=== PATIENT | female | born 1945 | race Caucasian/White ===

== ENCOUNTER → 2018-01-15 | Outpatient (CLI) | payer MEDICARE, BC ==
[2018-01-15 11:45] LABS: BASO # 0.1 (0.02-0.10); EOS # 0.1 (0.04-0.40); EOS % 2.6 % (1.0-5.0); HEMATOCRIT 44.6 % (37.0-47.0); HEMOGLOBIN 14.3 g/dL (12.5-16.0); LYMPH# 0.9 (1.50-4.00); MEAN CELL VOLUME 93 fl (78-100); MEAN CORPUSCULAR HEMOGLOBIN 30 pg (27-31); MEAN CORPUSCULAR HGB CONC 32 g/dL (33-37); MEAN PLATELET VOLUME 11.8 fl (7.4-10.4); MONO # 0.4 (0.20-0.80); NEU # 2.7 (1.40-6.50); PLATELET COUNT 298 K/mm3 (130-400); RED BLOOD COUNT 4.82 M/mm3 (4.10-5.30); RED CELL DISTRIBUTION WIDTH 13.7 % (11.5-14.5); WHITE BLOOD COUNT 4.2 K/mm3 (4.8-10.8)
[2018-01-15 11:51] LABS: ALBUMIN 4.5 g/dL (3.5-5.0); CALCIUM 9.5 mg/dL (8.4-10.2); POTASSIUM 4.3 mmol/L (3.6-5.0); TOTAL BILIRUBIN 0.7 mg/dL (0.2-1.3); TOTAL PROTEIN 7.5 g/dL (6.3-8.2)
== END ==
LOC: LAB 10:06
PROVIDERS: Nurse Practitioner Family
DX: R07.9 Chest pain, unspecified (principal)

== ENCOUNTER → 2018-06-01 | Outpatient (CLI) | payer MEDICARE | LOC: RAD | DX: Z13.820 Encounter for screening for osteoporosis (principal); M81.0 Age-related osteoporosis without current pathological fracture ==

== ENCOUNTER → 2018-06-01 | Outpatient (CLI) | payer MEDICARE, OTHER | LOC: MAMMO 11:30 | DX: Z12.31 Encounter for screening mammogram for malignant neoplasm of breast (principal) ==

== ENCOUNTER → 2019-04-22 | Outpatient (CLI) | payer MEDICARE | LOC: AMSURD 12:39 → LAB 12:39 | DX: R07.9 Chest pain, unspecified (principal) ==

== ENCOUNTER 2019-07-03 12:55 | Emergency (ER) | payer MEDICARE ==
[2019-07-03] MEDS ORDERED: FOSAMAX 70MG TA70 MG PO (13:09)
[2019-07-03 13:37] LABS: EOS # 0.1 (0.04-0.40); EOS % 1.1 % (1.0-5.0); HEMATOCRIT 42.7 % (37.0-47.0); LYMPH# 0.6 (1.50-4.00); MEAN CELL VOLUME 89 fl (78-100); MEAN CORPUSCULAR HEMOGLOBIN 29 pg (27-31); MEAN CORPUSCULAR HGB CONC 33 g/dL (33-37); MEAN PLATELET VOLUME 10.7 fl (7.4-10.4); MONO # 0.4 (0.20-0.80); NEU # 3.6 (1.40-6.50); PLATELET COUNT 263 K/mm3 (130-400); RED BLOOD COUNT 4.82 M/mm3 (4.10-5.30); WHITE BLOOD COUNT 4.7 K/mm3 (4.8-10.8)
[2019-07-03 13:47] LABS: ALBUMIN 4.3 g/dL (3.4-4.8); POTASSIUM 4.3 mmol/L (3.5-5.1)
[2019-07-03 13:49] LABS: CALCIUM 9.1 mg/dL (8.3-10.5)
[2019-07-03 13:50] LABS: TOTAL PROTEIN 7.3 g/dL (6.2-8.1)
[2019-07-03 13:52] LABS: TOTAL BILIRUBIN 0.4 mg/dL (0.2-1.2)
[2019-07-03 15:29] VITALS: BP 120/64
== END 2019-07-03 15:34 | disposition home or self-care (01) ==
LOC: ED 12:55
PROVIDERS: Family Medicine
DX: R07.89 Other chest pain (principal); J44.9 Chronic obstructive pulmonary disease, unspecified

== ENCOUNTER → 2020-07-25 | Outpatient (CLI) | payer MEDICARE ==
[~2020-07-25] MED LIST: FOSAMAX 70MG TA70 MG PO
== END ==
LOC: RAD 12:35 → MAMMO 13:45
DX: Z13.820 Encounter for screening for osteoporosis (principal); M81.0 Age-related osteoporosis without current pathological fracture

== ENCOUNTER 2021-04-23 08:42 | Emergency (ER) | payer MEDICARE ==
[~2021-04-23] VITALS: Ht 167.6 cm; Wt 65.5 kg
[2021-04-23 10:04] LABS: BASO # 0.04 K/mm3 (0.02-0.10); EOS # 0.11 K/mm3 (0.04-0.40); HEMATOCRIT 39.2 % (37.0-47.0); HEMOGLOBIN 12.6 g/dL (12.5-16.0); LYMPH# 0.63 K/mm3 (1.50-4.00); MEAN CELL VOLUME 89 fl (78-100); MEAN CORPUSCULAR HEMOGLOBIN 28 pg (27-31); MEAN CORPUSCULAR HGB CONC 32 g/dL (33-37); MEAN PLATELET VOLUME 11.2 fl (7.4-10.4); MONO # 0.38 K/mm3 (0.20-0.80); NEU # 2.46 K/mm3 (1.40-6.50); PLATELET COUNT 222 K/mm3 (130-400); RED BLOOD COUNT 4.43 M/mm3 (4.10-5.30); WHITE BLOOD COUNT 3.6 K/mm3 (4.8-10.8)
[2021-04-23 10:07] LABS: ALBUMIN 3.8 g/dL (3.4-4.8); POTASSIUM 3.8 mmol/L (3.5-5.1); SODIUM 142 mmol/L (136-145)
[2021-04-23 10:08] LABS: CALCIUM 9.3 mg/dL (8.3-10.5)
[2021-04-23 10:09] LABS: GLUCOSE 100 mg/dL (65-105); TOTAL PROTEIN 6.5 g/dL (6.2-8.1)
[2021-04-23 10:10] LABS: CARBON DIOXIDE 24 mmol/L (23-31)
[2021-04-23 10:11] LABS: TOTAL BILIRUBIN 0.5 mg/dL (0.2-1.2)
[2021-04-23 10:15] LABS: AST-SGOT 15 U/L (5-34)
[2021-04-23 10:16] LABS: ALT/SGPT 12 U/L (0-55); MAGNESIUM 1.91 mg/dL (1.60-2.60)
[2021-04-23 10:30] LABS: TROPONIN-I < 0.030 ng/mL (<0.030)
[2021-04-23] MEDS ORDERED: CALCIUM CITRAT1 EAC9 PO (10:39)
[2021-04-23] MEDS ORDERED: FOSAMAX 70MG TA70 MG PO (10:39)
[2021-04-23] MEDS ORDERED: VITAMIN D325 MC8 PO (10:39)
[2021-04-23] MEDS ORDERED: MULTIPLE VITAMI1 TA1 PO (10:40)
[2021-04-23] MEDS ORDERED: ARICEPT5 M1 PO (10:40)
[2021-04-23] MEDS ORDERED: PRAVASTATIN SOD10 MG PO (10:40)
[2021-04-23 11:51] VITALS: BP 165/90
[2021-04-23 11:57] LABS: URINE APPEARANCE CLEAR; URINE COLOR YELLOW
[2021-04-23 11:58] LABS: URINE BILIRUBIN NEGATIVE (NEGATIVE); URINE BLOOD TRACE (NEGATIVE); URINE GLUCOSE NEGATIVE (NEGATIVE); URINE KETONE NEGATIVE (NEGATIVE); URINE LEUKOCYTE ESTERASE TRACE (NEGATIVE); URINE NITRATE NEGATIVE (NEGATIVE); URINE PROTEIN(semi-quant) TRACE (NEGATIVE); URINE UROBILINOGEN NORMAL (NORMAL); URINE WBC 0-1 /hpf (0-3)
[2021-04-23 12:00] LABS: URINE MUCUS PRESENT (NOT PRESENT)
[2021-04-23] MEDS ORDERED: NORCO 325 MG-51 TA1 PO ×2 (12:01)
== END 2021-04-23 11:51 | disposition home or self-care (01) ==
LOC: ED 08:42
PROVIDERS: Physician Assistant
DX: F03.90 Unspecified dementia, unspecified severity, without behavioral disturbance, psychotic disturbance, mood disturbance, and anxiety (principal); R07.89 Other chest pain; Z87.891 Personal history of nicotine dependence
CPT/HCPCS: Q9967

== ENCOUNTER 2021-04-26 08:26 | Emergency (ER) | payer MEDICARE ==
[~2021-04-26] VITALS: Ht 167.6 cm; Wt 65.5 kg
[~2021-04-26 08:26] MED LIST changes: +ARICEPT5 M1 PO; +CALCIUM CITRAT1 EAC9 PO; +MULTIPLE VITAMI1 TA1 PO; +NORCO 325 MG-51 TA1 PO; +PRAVASTATIN SOD10 MG PO; +VITAMIN D325 MC8 PO
[2021-04-26 09:52] LABS: BASO # 0.03 K/mm3 (0.02-0.10); EOS # 0.13 K/mm3 (0.04-0.40); EOS % 3.6 % (1.0-5.0); HEMATOCRIT 40.9 % (37.0-47.0); HEMOGLOBIN 12.9 g/dL (12.5-16.0); LYMPH# 0.74 K/mm3 (1.50-4.00); MEAN CELL VOLUME 89 fl (78-100); MEAN CORPUSCULAR HEMOGLOBIN 28 pg (27-31); MEAN CORPUSCULAR HGB CONC 32 g/dL (33-37); MEAN PLATELET VOLUME 11.6 fl (7.4-10.4); MONO # 0.36 K/mm3 (0.20-0.80); NEU # 2.37 K/mm3 (1.40-6.50); PLATELET COUNT 229 K/mm3 (130-400); RED BLOOD COUNT 4.59 M/mm3 (4.10-5.30); RED CELL DISTRIBUTION WIDTH 14.1 % (11.5-14.5); WHITE BLOOD COUNT 3.6 K/mm3 (4.8-10.8)
[2021-04-26 09:56] LABS: POTASSIUM 3.9 mmol/L (3.5-5.1); SODIUM 142 mmol/L (136-145)
[2021-04-26 09:57] LABS: CALCIUM 9.5 mg/dL (8.3-10.5)
[2021-04-26 09:58] LABS: GLUCOSE 100 mg/dL (65-105)
[2021-04-26 09:59] LABS: TOTAL PROTEIN 6.9 g/dL (6.2-8.1)
[2021-04-26 10:00] LABS: CARBON DIOXIDE 24 mmol/L (23-31); TOTAL BILIRUBIN 0.5 mg/dL (0.2-1.2)
[2021-04-26 10:04] LABS: AST-SGOT 17 U/L (5-34)
[2021-04-26 10:05] LABS: ALT/SGPT 13 U/L (0-55)
[2021-04-26 10:35] LABS: TROPONIN-I < 0.030 ng/mL (<0.030)
[2021-04-26 10:36] LABS: PH-URINE 5.5 (5.0 - 8.0); URINE APPEARANCE HAZY; URINE BILIRUBIN NEGATIVE (NEGATIVE); URINE COLOR YELLOW; URINE GLUCOSE NEGATIVE (NEGATIVE); URINE KETONE NEGATIVE (NEGATIVE); URINE NITRATE NEGATIVE (NEGATIVE); URINE PROTEIN(semi-quant) TRACE (NEGATIVE); URINE UROBILINOGEN NORMAL (NORMAL)
[2021-04-26 10:37] LABS: URINE BLOOD TRACE (NEGATIVE); URINE LEUKOCYTE ESTERASE TRACE (NEGATIVE)
[2021-04-26 13:46] VITALS: BP 110/47
== END 2021-04-26 13:32 | disposition home or self-care (01) ==
LOC: ED 08:26
PROVIDERS: Nurse Practitioner
DX: R07.89 Other chest pain (principal); Z87.891 Personal history of nicotine dependence

== ENCOUNTER 2021-10-24 18:33 | Emergency (ER) | payer MEDICARE ==
[2021-10-24 19:21] LABS: BASO # 0.02 K/mm3 (0.02-0.10); EOS # 0.12 K/mm3 (0.04-0.40); HEMATOCRIT 42.5 % (37.0-47.0); HEMOGLOBIN 13.4 g/dL (12.5-16.0); LYMPH# 0.75 K/mm3 (1.50-4.00); MEAN CELL VOLUME 92 fl (78-100); MEAN CORPUSCULAR HEMOGLOBIN 29 pg (27-31); MEAN CORPUSCULAR HGB CONC 32 g/dL (33-37); MEAN PLATELET VOLUME 10.7 fl (7.4-10.4); MONO # 0.35 K/mm3 (0.20-0.80); NEU # 4.74 K/mm3 (1.40-6.50); PLATELET COUNT 246 K/mm3 (130-400); RED BLOOD COUNT 4.63 M/mm3 (4.10-5.30); RED CELL DISTRIBUTION WIDTH 14.3 % (11.5-14.5)
[2021-10-24 19:29] LABS: ALBUMIN 4.4 g/dL (3.4-4.8)
[2021-10-24 19:30] LABS: CALCIUM 9.6 mg/dL (8.3-10.5)
[2021-10-24 19:32] LABS: TOTAL PROTEIN 7.7 g/dL (6.2-8.1)
[2021-10-24 19:33] LABS: TOTAL BILIRUBIN 0.3 mg/dL (0.2-1.2)
[2021-10-24 20:30] VITALS: BP 145/89
== END 2021-10-24 20:35 | disposition home or self-care (01) ==
LOC: ED 18:33
PROVIDERS: Family Medicine
DX: M54.9 Dorsalgia, unspecified (principal); R07.81 Pleurodynia; X50.0XXA Overexertion from strenuous movement or load, initial encounter; Y92.096 Garden or yard of other non-institutional residence as the place of occurrence of the external cause; Y93.89 Activity, other specified

== ENCOUNTER → 2021-10-29 | Outpatient (CLI) | payer MEDICARE ==
[2021-10-29 17:49] LABS: URINE APPEARANCE HAZY; URINE BILIRUBIN NEGATIVE (NEGATIVE); URINE BLOOD 50 ery/uL (NEGATIVE); URINE COLOR YELLOW; URINE GLUCOSE NEGATIVE (NEGATIVE); URINE KETONE NEGATIVE (NEGATIVE); URINE LEUKOCYTE ESTERASE 1+ (NEGATIVE); URINE NITRATE NEGATIVE (NEGATIVE); URINE PROTEIN(semi-quant) 2+ (NEGATIVE); URINE UROBILINOGEN NORMAL (NORMAL)
[2021-10-29 17:50] LABS: URINE MUCUS PRESENT (NOT PRESENT); URINE WBC 16-30 /hpf (0-3)
== END ==
LOC: LAB 16:52
PROVIDERS: Family Medicine
DX: F03.90 Unspecified dementia, unspecified severity, without behavioral disturbance, psychotic disturbance, mood disturbance, and anxiety (principal); E78.5 Hyperlipidemia, unspecified; M81.0 Age-related osteoporosis without current pathological fracture; M19.90 Unspecified osteoarthritis, unspecified site; E55.9 Vitamin D deficiency, unspecified; R30.9 Painful micturition, unspecified; S22.42XA Multiple fractures of ribs, left side, initial encounter for closed fracture; N39.0 Urinary tract infection, site not specified

== ENCOUNTER → 2022-05-15 | Outpatient (CLI) | payer MEDICARE | LOC: LAB 17:42 | DX: R41.0 Disorientation, unspecified (principal) ==

== ENCOUNTER → 2022-05-29 | Outpatient (CLI) | payer MEDICARE | LOC: RAD 14:14 | DX: K44.9 Diaphragmatic hernia without obstruction or gangrene (principal); S22.079A Unspecified fracture of T9-T10 vertebra, initial encounter for closed fracture; S32.019A Unspecified fracture of first lumbar vertebra, initial encounter for closed fracture; X58.XXXA Exposure to other specified factors, initial encounter ==

== ENCOUNTER 2023-11-01 12:56 | Emergency (ER) | payer MEDICARE ==
[~2023-11-01] VITALS: Ht 160 cm; Wt 60.0 kg
[2023-11-01] MEDS ORDERED: DESYREL50 MG PO (13:15)
[2023-11-01] MEDS ORDERED: DIVALPROEX SOD250 MG PO (13:15)
[2023-11-01] MEDS ORDERED: ESCITALOPRAM5 MG PO (13:15)
[2023-11-01 13:59] LABS: HEMATOCRIT 33.8 % (37.0-47.0); HEMOGLOBIN 9.6 g/dL (12.5-16.0); MEAN CELL VOLUME 65 fl (78-100); MEAN CORPUSCULAR HEMOGLOBIN 19 pg (27-31); MEAN CORPUSCULAR HGB CONC 28 g/dL (33-37); PLATELET COUNT 169 K/mm3 (130-400); RED BLOOD COUNT 5.17 M/mm3 (4.10-5.30); RED CELL DISTRIBUTION WIDTH 23.1 % (11.5-14.5); WHITE BLOOD COUNT 4.5 K/mm3 (4.8-10.8)
[2023-11-01 14:07] LABS: ALBUMIN 3.4 g/dL (3.4-4.8)
[2023-11-01 14:08] LABS: CALCIUM 8.6 mg/dL (8.3-10.5)
[2023-11-01 14:09] LABS: TOTAL PROTEIN 6.2 g/dL (6.2-8.1)
[2023-11-01 14:11] LABS: TOTAL BILIRUBIN 0.4 mg/dL (0.2-1.2)
[2023-11-01 14:15] LABS: PH-URINE 5.5 (5.0 - 8.0); URINE APPEARANCE SLIGHTLY CLOUDY (CLEAR); URINE COLOR YELLOW (YELLOW); URINE GLUCOSE NEGATIVE (NEGATIVE); URINE PROTEIN(semi-quant) 1+ (NEGATIVE)
[2023-11-01 14:16] LABS: URINE BILIRUBIN 1+ (NEGATIVE); URINE BLOOD 1+ (NEGATIVE); URINE KETONE 3+ (NEGATIVE); URINE LEUKOCYTE ESTERASE TRACE (NEGATIVE); URINE MUCUS PRESENT (NOT PRESENT); URINE NITRATE POSITIVE (NEGATIVE); URINE WBC 31-50 /hpf (0-3)
[2023-11-01 14:26] LABS: BAND 5 % (0-10); LYMPHOCYTE 9 % (20-51); MONOCYTE 4 % (3-10); NEUTROPHILS 81 % (42-75)
[2023-11-01] MEDS ORDERED: CEFDINIR300 MG PO (14:58)
[2023-11-01] MEDS ORDERED: Cefdinir 300 MG CAP PO ONE (15:00)
[2023-11-01 15:24] VITALS: BP 117/73
== END 2023-11-01 16:20 | disposition home or self-care (01) ==
LOC: ED 12:56
PROVIDERS: Physician Assistant
DX: N39.0 Urinary tract infection, site not specified (principal); B96.20 Unspecified Escherichia coli [E. coli] as the cause of diseases classified elsewhere